=== PATIENT | male | born 1990 | race American Indian/Alaskan Native ===

== ENCOUNTER 2018-04-25 15:25 | Emergency (ER) | payer MEDICAID ==
[2018-04-25 15:42] VITALS: BP 124/56
[2018-04-25 16:07] LABS: Bilirubin,Urine NEG (Negative); Blood,Urine NEG (Negative); Color,Urine Yellow (Yellow); Mucus,Urine FEW /HPF; Protein,Urine <15 mg/dL mg/dL (Negative)
== END 2018-04-25 19:00 | disposition left against medical advice (07) ==
LOC: ED 15:25
DX: N39.0 Urinary tract infection, site not specified (principal); M62.838 Other muscle spasm; R61 Generalized hyperhidrosis; Z53.21 Procedure and treatment not carried out due to patient leaving prior to being seen by health care provider
CPT/HCPCS: 81001

== ENCOUNTER 2020-07-24 18:21 | Emergency (ER) | payer MEDICAID ==
[2020-07-24 18:43] VITALS: BP 106/74
[2020-07-24] MEDS ORDERED: traMADol 50 MG TAB PO ONE (19:51)
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
[2020-07-24] MEDS ORDERED: HYDROcodone/ACETAMINOPHEN 5-325 MG TAB PO ONE (21:23)
== END 2020-07-24 21:35 | disposition home or self-care (01) ==
LOC: ED 18:21
DX: S16.1XXA Strain of muscle, fascia and tendon at neck level, initial encounter (principal); R56.9 Unspecified convulsions; Z98.890 Other specified postprocedural states; Z79.899 Other long term (current) drug therapy; Z88.8 Allergy status to other drugs, medicaments and biological substances; V49.49XA Driver injured in collision with other motor vehicles in traffic accident, initial encounter; Y93.89 Activity, other specified; Y92.410 Unspecified street and highway as the place of occurrence of the external cause; Y99.8 Other external cause status
CPT/HCPCS: 72125